=== PATIENT | female | born 2000 ===

== ENCOUNTER 2018-03-31 13:40 | Emergency (ER) | payer MEDICAID ==
[2018-03-31] MEDS ORDERED: Tetanus/Diphtheria Toxoids 0.5 ml Syringe IM ONE ×2 (14:18→14:34)
[2018-03-31] MEDS ORDERED: Amoxicillin-Clav 875-125 mg Tab PO STA (14:19)
[2018-03-31] MEDS ORDERED: Bacitracin 500 Units/gm Oint Foilpak UD TOP ONE (14:21)
--- NOTE | 2018-03-31 14:25 | C.PDOC ---
History Of Present Illness 17 y/o female presents to the ER for evaluation of a dog bite to the left thigh sustained [employer]. Patient states that she was walking on the street when a domesticated healthy looking dog being walked by another person ran up to her and bit her on the left leg. She did not realize that there were breaks in her skin as the dog bit her through the pants. When she went home, she saw puncture wound on her left thigh. Of note, patient is not sure about tetanus vaccination status. Time Seen by Provider: 03/31/18 14:02 Chief Complaint (Nursing): Bite History Per: Patient History/Exam Limitations: no limitations Onset/Duration Of Symptoms: Hrs Current Symptoms Are (Timing): Still Present Severity: Moderate Past Medical History Reviewed: Historical Data, Nursing Documentation, Vital Signs Vital Signs: Last Vital Signs Temp 99.1 F 03/31/18 14:55 Pulse 84 03/31/18 14:55 Resp 20 03/31/18 14:55 BP 109/74 03/31/18 14:55 Pulse Ox 100 03/31/18 14:55 - Medical History PMH: No Chronic Diseases - Social History Hx Alcohol Use: No Hx Substance Use: No - Immunization History Hx Tetanus Toxoid Vaccination: No Hx Influenza Vaccination: No Hx Pneumococcal Vaccination: No Review Of Systems Except As Marked, All Systems Reviewed And Found Negative. Skin: Positive for: Other (puncture wound to left thigh) Physical Exam - Physical Exam Appears: Non-toxic, No Acute Distress Skin: Normal Color, Warm, Dry Head: Atraumatic, Normacephalic Eye(s): bilateral: Normal Inspection Nose: Normal Oral Mucosa: Moist Neck: Supple Chest: Symmetrical Cardiovascular: Rhythm Regular Respiratory: Normal Breath Sounds, No Rales, No Rhonchi, No Wheezing Extremity: Normal ROM, Tenderness (tenderness to palpation to left lateral thigh ), Other (approx 3-4 cm, in circumference, bite wound to left lateral thigh with small puncture wounds, no bleeding, no discharge) Neurological/Psych: Oriented x3, Normal Speech ED Course And Treatment O2 Sat by Pulse Oximetry: 97 (RA) Pulse Ox Interpretation: Normal Progress Note: Patient administered tetanus vaccination. Patient treated with Amoxicillin PO and Tylenol PO. Disposition Counseled Patient/Family Regarding: Diagnosis, Need For Followup, Rx Given - Disposition Referrals: [facility] [Outside] Disposition: HOME/ ROUTINE Disposition Time: 14:30 Condition: STABLE Additional Instructions: FOLLOW UP WITH YOUR DOCTOR IN 1-2 DAYS USE MEDICATIONS DIRECTED RETURN TO ER IF SYMPTOMS WORSEN, SUCH REDNESS, DRAINAGE, WORSENING PAIN, ETC Prescriptions: Acetaminophen [Tylenol 325mg tab] 650 mg PO Q6 PRN #30 tab PRN Reason: pain/fever Amoxicillin/Clavulanate [Augmentin 875 MG-125 MG] 1 tab PO BID #14 tab Instructions: Animal Bites (DC) Forms: [employer] (Afghan) Print Language: POLISH - Clinical Impression Clinical Impression: Dog bite of left thigh - Scribe Statement The provider has reviewed the documentation as recorded by the Esteban Kaufman Provider Attestation: All medical record entries made by the Esteban were at my direction and personally dictated by me. I have reviewed the chart and agree that the record accurately reflects my personal performance of the history, physical exam, medical decision making, and the department course for this patient. I have also personally directed, reviewed, and agree with the discharge instructions and disposition.
[2018-03-31] MEDS ORDERED: Bacitracin 500 Units/gm Oint Foilpak UD ONE (14:32)
[2018-03-31] MEDS ORDERED: Amoxicillin-Clav 875-125 mg Tab PO ONE (14:54)
[2018-03-31 14:59] VITALS: BP 109/74; PULSE 84; RESP 20; TEMP 99.1
[2018-03-31 17:46] VITALS: O2SAT 97
== END 2018-03-31 14:59 | disposition home or self-care (01) ==
LOC: C.ER 13:40
DX: S71.152A Open bite, left thigh, initial encounter (principal); W54.0XXA Bitten by dog, initial encounter; Z23 Encounter for immunization